=== PATIENT | female | born 1975 | race African-American/Black ===

== ENCOUNTER 2018-07-13 15:35 | Emergency (ER) | payer OTHER ==
[~2018-07-13] VITALS: Ht 165.1 cm; Wt 68.0 kg
[2018-07-13 15:35] VITALS: BP 154/76
[~2018-07-13 15:35] MED LIST: BIRTH CONTROL PO
== END 2018-07-13 16:16 | disposition home or self-care (01) ==
LOC: ER 15:37
DX: S93.491A Sprain of other ligament of right ankle, initial encounter (principal); S63.682A Other sprain of left thumb, initial encounter; L30.9 Dermatitis, unspecified; H65.91 Unspecified nonsuppurative otitis media, right ear; W18.39XA Other fall on same level, initial encounter; Y93.89 Activity, other specified; Y92.89 Other specified places as the place of occurrence of the external cause; Y99.8 Other external cause status
CPT/HCPCS: A4606; Z7610

== ENCOUNTER 2019-05-13 12:23 | Emergency (ER) | payer OTHER ==
[~2019-05-13] VITALS: Ht 165.1 cm; Wt 69.9 kg
[2019-05-13 12:28] VITALS: BP 153/102
[2019-05-13] MEDS ORDERED: predniSONE 20 MG TABLET ONE (12:39)
[2019-05-13] MEDS ORDERED: predniSONE 20 MG TABLET PO ONE (13:00)
== END 2019-05-13 12:52 | disposition home or self-care (01) ==
LOC: ER 12:24
DX: R21 Rash and other nonspecific skin eruption (principal); T49.4X5A Adverse effect of keratolytics, keratoplastics, and other hair treatment drugs and preparations, initial encounter; F10.10 Alcohol abuse, uncomplicated; Y90.9 Presence of alcohol in blood, level not specified; X58.XXXA Exposure to other specified factors, initial encounter
CPT/HCPCS: 99283; A6403; J7512